=== PATIENT | male | born 1950 ===

== ENCOUNTER → 2025-03-09 | Outpatient (CLI) | payer MEDICAID ==
--- NOTE | 2025-03-10 13:43 | DVHSR ---
APPROVED REPORT EXAM: Two-dimensional and M-mode echocardiogram with Doppler and color Doppler. DIMENSIONS LVDd3.9 (3.8-5.7cm)LA (2D)4.0 (1.9-4.0cm)Aortic Root3.9 (2.0-3.7cm) LVDs2.7 (2.5-4.0cm)LA (MM) (1.9-4.0cm)Aortic Cusp Exc1.6 (1.5-2.0cm) EF (%) 59.6 (55-70%)Rt. Atrium4.0 (1.9-4.0cm)Asc. Aorta cm IVSd1.3 (0.7-1.1cm)RV (D)3.9 (1.8-2.4cm) PWd1.5 (0.7-1.1cm) Mitral Valve MitralMitral Stenosis E wave0.64m/sMV Mean GR.mmHg A wave0.86m/sMV Peak GR.42mmHg E/A ratio0.72D MVAcm2 DECEL [id number] 1/2 [place] Aortic Valve Aortic ValveAortic Stenosis V10.90m/Hui Mean GR.4mmHg V21.31m/Hui Peak GR.7mmHg Pulmonic Valve V20.55m/s Tricuspid Valve TR Velocity1.97m/s [id number] LEFT VENTRICLE The Ejection Fraction is >55%. ATRIA The left atrial size is normal. The right atrium size is normal. MITRAL VALVE Mitral annular calcification is mild. Mitral regurgitation is mild. PULMONIC VALVE The pulmonic valve is not well visualized. There is trace pulmonic valvular regurgitation. TRICUSPID VALVE The tricuspid valve is grossly normal. There is trace tricuspid regurgitation. AORTIC VALVE The aortic valve is mildlysclerotic. There is trace aortic regurgitation. GREAT VESSELS There is mild aortic root dilatation. PERICARDIAL EFFUSION There is no pericardial effusion. Conclusion EF 55% LVH MILD MR MILD MAC
== END | disposition home or self-care (01) ==
LOC: Rad HDHVI 09:04
PROVIDERS: ATTEND Internal Medicine Cardiovascular Disease
DX: I08.0 Rheumatic disorders of both mitral and aortic valves (principal); I77.819 Aortic ectasia, unspecified site; R07.9 Chest pain, unspecified
CPT/HCPCS: 93306

== ENCOUNTER → 2025-03-13 | Outpatient (CLI) | payer MEDICAID | END | disposition home or self-care (01) | LOC: Rad HDHVI 09:03 | PROVIDERS: ATTEND Internal Medicine Cardiovascular Disease | DX: R07.89 Other chest pain (principal) | CPT/HCPCS: 93880 ==